=== PATIENT | male | born 1950 | race Caucasian/White ===

== ENCOUNTER → 2016-09-15 | Outpatient (CLI) | payer OTHER ==
[~2016-09-15] MED LIST: ASPIRIN EC81 M1 PO; CARDIZEM CD180 MG PO; HYDROCHLOROTHIA25 M1 PO; LIPITOR10 MG; LISINOPRIL20 MG PO; METFORMIN HCL500 MG PO; NIASPAN750 MG; PRADAXA150 MG PO; PRALUENT P75 MG/1 ML INJ; TOPROL XL100 MG PO; TRICOR145 MG
--- NOTE | ~2016-09-15 | 2DMMODE ---
[facility] [place] [address] 2 D/M-MODE ECHOCARDIOGRAM Name: EMILI PAGE Room #: REG [facility]#: [id number] Admission: 09/15/16 Attend Phys: Moises Zepeda MD Discharge: Date of : 52 Date of Service: 09/15/16 1342 Report #: [id number] THIS REPORT FOR: //name// APPROVED REPORT Study performed: 09/15/2016 13:09:36 EXAM: Comprehensive 2D, Doppler, and color-flow Echocardiogram Patient Location: Out-Patient Blood Pressure: 158/102 mmHg HR: 74 bpm Rhythm: Atrial Fibrillation Other Information Study Quality: Adequate Indications CAD. Hx: NM, stents, chronic Afib, HTN, HLP 2D Dimensions RVDd: 41.28 mm LVEF(%): 50.60 (>50%) IVSd: 11.35 (7-11mm) LVDd: 41.00 mm PWd: 10.29 (7-11mm) Ascending Ao: 32.74 (22-36mm) LVDs: 30.58 (25-40mm) Aortic Root: 38.03 mm Monroe's LVEF: 50.60 % Volumes Left Atrial Volume (Systole) Single Plane 4CH: 123.02 mL Single Plane 2CH: 94.80 mL LA ESV Index: 53.00 mL/m2 Aortic Valve AoV Peak Micky.: 1.16 m/s AO Peak Gr.: 5.47 mmHg LVOT Max P.38 mmHg LVOT Max V: 0.77 m/s Mitral Valve MV Decel. Time: 183.37 ms MV E Max Micky.: 0.86 m/s IVRT: 87.66 ms [facility] [place] [address] [place] [address] 2 D/M-MODE ECHOCARDIOGRAM Name: EMILI PAGE Room #: REG [facility]#: [id number] Admission: 09/15/16 Attend Phys: Moises Zepeda MD Discharge: Date of : 52 Date of Service: 09/15/16 1342 Report #: [id number] Pulmonary Valve PV Peak Micky.: 0.86 m/s PV Peak Gr.: 3.00 mmHg Tricuspid Valve TR Peak Micky.: 2.29 m/s RAP Estimate: 5.00 mmHg TR Peak Gr.: 20.93 mmHg RVSP: 26.00 mmHg Left Ventricle The left ventricle is normal size. There is normal LV segmental wall motion. There is normal left ventricular wall thickness. Left ventricular systolic function is normal. LVEF is 50-55%. This study is not technically sufficient to allow evaluation of the LV diastolic function due to atrial fibrillation. Right Ventricle The right ventricle is normal size. The right ventricular systolic function is normal. Atria Left atrium is severely dilated. Right atrium is severely dilated. Aortic Valve The Aortic valve is mildly sclerotic. Trace aortic regurgitation. There is no aortic valvular stenosis. Mitral Valve The mitral valve is normal in structure. Mild mitral annular calcification. Mild to moderate mitral regurgitation. No evidence of mitral valve stenosis. Tricuspid Valve The tricuspid valve is normal in structure. There is mild tricuspid regurgitation. The right atrial pressure is estimated at 5 mmHg. Estimated PAP is 26mmHg. Pulmonic Valve The pulmonary valve is normal in structure. Trace pulmonic regurgitation. Great Vessels Aortic root is borderline dilated. The ascending aorta is normal in size. IVC is normal in size and collapses >50% with inspiration. [facility] [address] [place] [address] 2 D/M-MODE ECHOCARDIOGRAM Name: EMILI PAGE Room #: REG [facility]#: [id number] Admission: 09/15/16 Attend Phys: Moises Zepeda MD Discharge: Date of : 52 Date of Service: 09/15/16 1342 Report #: [id number] Pericardium There is no pericardial effusion. <Conclusion> The left ventricle is normal size. Left ventricular systolic function is normal. The right ventricle is normal size. Left atrium is severely dilated. Right atrium is severely dilated. Trace aortic regurgitation. Mild to moderate mitral regurgitation. There is mild tricuspid regurgitation. The right atrial pressure is estimated at 5 mmHg. Estimated PAP is 26mmHg. <ELECTRONICALLY SIGNED> By: Moises Zepeda MD 09/15/161341 41 41 Moises Zepeda MD /INF
== END ==
LOC: CV 08:49
DX: I25.10 Atherosclerotic heart disease of native coronary artery without angina pectoris (principal)

== ENCOUNTER 2017-08-05 10:24 | Emergency (ER) | payer OTHER ==
[~2017-08-05] VITALS: Ht 185.4 cm; Wt 98.9 kg
[2017-08-05] MEDS ORDERED: LISINOPRIL20 MG PO (11:12)
[2017-08-05] MEDS ORDERED: LASIX 20 MG TAB20 MG PO (11:12)
[2017-08-05] MEDS ORDERED: PRALUENT P75 MG/1 ML SUBQ (11:14)
[2017-08-05] MEDS ORDERED: PREDNISONE 20 M20 MG PO (11:16)
== END 2017-08-05 11:26 | disposition home or self-care (01) ==
LOC: ER 10:24
DX: L50.9 Urticaria, unspecified (principal); I48.91 Unspecified atrial fibrillation; I10 Essential (primary) hypertension; E78.00 Pure hypercholesterolemia, unspecified; I25.10 Atherosclerotic heart disease of native coronary artery without angina pectoris; Z88.0 Allergy status to penicillin

== ENCOUNTER → 2020-05-19 | Outpatient (CLI) | payer OTHER, BC ==
[~2020-05-19] MED LIST changes: +LASIX 20 MG TAB20 MG PO; +PRALUENT P75 MG/1 ML SUBQ; +PREDNISONE 20 M20 MG PO
== END ==
LOC: SJCVC 08:38
PROVIDERS: ATTEND Internal Medicine Cardiovascular Disease
DX: I48.0 Paroxysmal atrial fibrillation (principal); R94.31 Abnormal electrocardiogram [ECG] [EKG]; I25.10 Atherosclerotic heart disease of native coronary artery without angina pectoris; I10 Essential (primary) hypertension; E78.00 Pure hypercholesterolemia, unspecified; E78.5 Hyperlipidemia, unspecified; I25.2 Old myocardial infarction; Z82.49 Family history of ischemic heart disease and other diseases of the circulatory system; Z79.82 Long term (current) use of aspirin; Z79.84 Long term (current) use of oral hypoglycemic drugs; Z79.899 Other long term (current) drug therapy

== ENCOUNTER → 2020-06-05 | Outpatient (CLI) | payer OTHER, BC | LOC: SJCVC 09:42 | PROVIDERS: ATTEND Internal Medicine Cardiovascular Disease | DX: E87.1 Hypo-osmolality and hyponatremia (principal); Z79.82 Long term (current) use of aspirin; Z79.84 Long term (current) use of oral hypoglycemic drugs; Z79.899 Other long term (current) drug therapy; Z72.89 Other problems related to lifestyle; Z88.0 Allergy status to penicillin; Z88.8 Allergy status to other drugs, medicaments and biological substances ==

== ENCOUNTER → 2020-11-18 | Outpatient (CLI) | payer OTHER, BC | LOC: SJCVCIMAG 08:55 | PROVIDERS: ATTEND Internal Medicine Cardiovascular Disease | DX: I49.3 Ventricular premature depolarization (principal); I25.10 Atherosclerotic heart disease of native coronary artery without angina pectoris; I10 Essential (primary) hypertension; I48.20 Chronic atrial fibrillation, unspecified; I25.2 Old myocardial infarction; E78.00 Pure hypercholesterolemia, unspecified; Z88.0 Allergy status to penicillin; Z88.1 Allergy status to other antibiotic agents; Z79.899 Other long term (current) drug therapy; Z79.82 Long term (current) use of aspirin; Z72.89 Other problems related to lifestyle ==

== ENCOUNTER → 2021-05-21 | Outpatient (CLI) | payer OTHER, BC | LOC: SJCVC 10:51 | PROVIDERS: ATTEND Internal Medicine Cardiovascular Disease | DX: R94.31 Abnormal electrocardiogram [ECG] [EKG] (principal); I25.10 Atherosclerotic heart disease of native coronary artery without angina pectoris; I48.21 Permanent atrial fibrillation; I10 Essential (primary) hypertension; E78.00 Pure hypercholesterolemia, unspecified; E87.1 Hypo-osmolality and hyponatremia; Z72.89 Other problems related to lifestyle; Z79.82 Long term (current) use of aspirin; Z79.84 Long term (current) use of oral hypoglycemic drugs; Z79.899 Other long term (current) drug therapy; Z82.49 Family history of ischemic heart disease and other diseases of the circulatory system; Z88.0 Allergy status to penicillin; Z88.8 Allergy status to other drugs, medicaments and biological substances ==